=== PATIENT | male | born 1975 | race Caucasian/White ===

== ENCOUNTER 2022-02-20 08:59 | Outpatient (CLI) | payer OTHER | END 2022-02-20 09:00 | disposition home or self-care (01) | LOC: CSHCP 08:59 | PROVIDERS: ATTEND Nurse Practitioner Family | DX: R06.02 Shortness of breath (principal); R94.2 Abnormal results of pulmonary function studies | CPT/HCPCS: 94010; 94726; 94729; 94760 ==

== ENCOUNTER 2023-11-13 13:04 | Emergency (ER) | payer OTHER ==
[2023-11-13 14:12] LABS: #Basophils 0.05 10x3/uL (0.0-0.2); #Eosinphils 0.26 10x3/uL (0.0-0.5); #Monocytes 0.83 10x3/uL (0.0-1.1); #Neutrophils 4.08 10x3/uL (1.5-8.4); %Basophils 0.6 % (0.0-2.0); %Lymphocytes 39.8 % (18.0-47.0); %Monocytes 9.5 % (0.0-10.0); %Neutrophils 46.9 % (40.0-75.0); Hemoglobin 15.5 g/dL (13.5-17.5); Mean Corpuscular HGB CONC 34.4 g/dL (32.0-36.0); Mean Corpuscular Hemoglobin 30.9 pg (27.0-33.0); Mean Corpuscular Volume 89.8 fL (81.2-95.1); Platelet Count 278 10x3/uL (150-450); RBC Distribution Width 11.6 % (11.5-14.5); Red Blood Cell (RBC) Count 5.01 10x6/uL (4.32-5.72); White Blood Cell (WBC) Count 8.7 10x3/uL (3.5-10.5)
[2023-11-13 14:24] LABS: ALT (SGPT) 62 U/L (8-55); AST (SGOT) 45 U/L (5-34); Alkaline Phosphatase 62 U/L (40-110); Anion Gap 15 mmol/L (10-20); BUN (Urea Nitrogen) 36 mg/dL (8.9-20.6); Bilirubin, Total 0.7 mg/dL (0.2-1.2); Calc. Creatinine Clearance 0 mL/min (70-130); Carbon Dioxide 31 mmol/L (22-29); Chloride 95 mmol/L (98-107); Estimated GFR 54; Globulin 3.5 g/dL (2.4-3.5); Glucose 147 mg/dL (70-105); Potassium 3.3 mmol/L (3.5-5.1); Protein, Total 7.5 g/dL (6.0-8.3); Sodium 138 mmol/L (136-145)
[2023-11-13 14:27] LABS: Troponin I Less than 0.010 ng/mL (< 0.028)
[2023-11-13 16:09] LABS: Troponin I Less than 0.010 ng/mL (< 0.028)
== END 2023-11-13 16:46 | disposition home or self-care (01) ==
LOC: CSHERS 13:04
DX: R07.2 Precordial pain (principal); I11.0 Hypertensive heart disease with heart failure; I50.9 Heart failure, unspecified
CPT/HCPCS: 36415; 71045; 80053; 83880; 84484; 85025; 93005; 93010

== ENCOUNTER 2024-09-28 16:03 | Emergency (ER) | payer OTHER ==
[~2024-09-28 16:03] MED LIST: Iopamidol 370 76% 100 ML VIAL ONE
[2024-09-28 16:57] LABS: #Basophils 0.04 10x3/uL (0.0-0.2); #Eosinophils 0.26 10x3/uL (0.0-0.5); #Monocytes 0.95 10x3/uL (0.0-1.1); #Neutrophils 6.10 10x3/uL (1.5-8.4); %Basophils 0.4 % (0.0-2.0); %Eosinophils 2.4 % (0.0-6.0); %Lymphocytes 31.6 % (18.0-47.0); %Monocytes 8.8 % (0.0-10.0); %Neutrophils 56.4 % (40.0-75.0); Hematocrit 46.9 % (38.8-50.0); Hemoglobin 16.0 g/dL (13.5-17.5); Mean Corpuscular Hemoglobin 30.2 pg (27.0-33.0); Mean Corpuscular Volume 88.5 fL (81.2-95.1); Platelet Count 267 10x3/uL (150-450); Red Blood Cell (RBC) Count 5.30 10x6/uL (4.32-5.72); White Blood Cell (WBC) Count 10.81 10x3/uL (3.5-10.5)
[2024-09-28 17:12] LABS: ALT (SGPT) 129 U/L (Less than 45); AST (SGOT) 82 U/L (11-34); Albumin 4.2 g/dL (3.1-4.5); Alkaline Phosphatase 79 U/L (40-110); Anion Gap 15 mmol/L (10-20); BUN (Urea Nitrogen) 24 mg/dL (8.9-20.6); Bilirubin, Total 0.5 mg/dL (0.3-1.2); Calc. Creatinine Clearance 0 mL/min (70-130); Calcium 9.8 mg/dL (7.8-10.44); Carbon Dioxide 34 mmol/L (22-29); Chloride 92 mmol/L (98-107); Globulin 4.1 g/dL (2.4-3.5); Glucose 168 mg/dL (70-105); Sodium 138 mmol/L (136-145)
[2024-09-28 17:15] LABS: Troponin I Less than 0.010 ng/mL (< 0.028)
[2024-09-28 17:20] LABS: Potassium 2.6 mmol/L (3.5-5.1)
== END 2024-09-28 21:41 | disposition home or self-care (01) ==
LOC: CSHERS 16:03
DX: R07.89 Other chest pain (principal); N17.9 Acute kidney failure, unspecified; E87.6 Hypokalemia; E86.9 Volume depletion, unspecified; I11.0 Hypertensive heart disease with heart failure; I50.30 Unspecified diastolic (congestive) heart failure
CPT/HCPCS: 71045; 71275; 80053; 83880; 84484; 85025; 85379; 93005; Q9967